=== PATIENT | male | born 1970 | race Caucasian/White ===

== ENCOUNTER 2019-03-03 06:09 | Day surgery (SDC) | payer BC, OTHER ==
[2019-03-01 13:41] VITALS: BMI 30.4
[2019-03-03] MEDS ORDERED: oxyCODONE HCL 10 MG SUSTAINED ACTING TABLET PO ONE (06:12)
[2019-03-03] MEDS ORDERED: DEXAMETHASONE SOD PHOSPHATE/PF 10 MG/ML SDV ONE (07:16)
[2019-03-03] MEDS ORDERED: MIDAZOLAM HCL 2 MG/2 ML SINGLE DOSE VIAL ONE ×3 (07:17→08:45)
[2019-03-03] MEDS ORDERED: BUPIVACAINE HCL/PF 0.5% (5 MG/ML) 30 ML VIAL IJ ONE (07:17)
[2019-03-03] MEDS ORDERED: methylPREDNISolone ACET (DEPO) 40 MG/1 ML VIAL ONE (07:47)
[2019-03-03] MEDS ORDERED: LIDOCAINE 1%/EPI 1:100000 (20 ML MULTI DOSE VIAL) ONE (07:47)
--- NOTE | 2019-03-03 08:13 | HP ---
History & Physical Update - History History: No Change - Physical Physical: No Change - Assessment Assessment: No Change - Plan Plan: No Change
[2019-03-03] MEDS ORDERED: LIDOCAINE 1%/EPI 1:100000 (50 ML MULTI DOSE VIAL) INF ONE (09:11)
[2019-03-03] MEDS ORDERED: oxyCODONE HCL 5 MG TABLET PO PRN (09:18)
[2019-03-03] MEDS ORDERED: ONDANSETRON 4 MG/2 ML VIAL IVPUSH PRN ×2 (09:18→10:57)
[2019-03-03] MEDS ORDERED: LACTATED RINGERS SOLUTION 1,000 ML IV SCH (09:30)
[2019-03-03] MEDS ORDERED: DEXAMETHASONE SOD PHOSPHATE 4 MG/1 ML VIAL ONE (10:00)
[2019-03-03] MEDS ORDERED: ceFAZolin SODIUM 1 GM VIAL ONE (10:00)
[2019-03-03] MEDS ORDERED: SODIUM CHLORIDE 0.9% P/F 10 ML VIAL IJ ONE (10:00)
[2019-03-03] MEDS ORDERED: ONDANSETRON 4 MG/2 ML VIAL ONE (10:00)
[2019-03-03] MEDS ORDERED: methylPREDNISolone ACET (DEPO) 40 MG/1 ML VIAL NR ONE (10:01)
--- NOTE | 2019-03-03 10:56 | OP ---
Operative Note - Note: Operative Date: 03/03/19 Pre-Operative Diagnosis: lumbar stenosis, disc herniation Operation: s/p laminectomy of L4-5 with microdiscectomy, repair of durotomy with durseal Surgeon: Sen Perdue Innersole Maker: Jackie Mitchell Anesthesiologist/COLLECTION COORDINATOR: Yolis Main Anesthesia: Spinal Estimated Blood Loss (mls): 20 Fluid Volume Replaced (mls): 800 Operative Report Dictated: Yes
[2019-03-03] MEDS ORDERED: BISACODYL 10 MG SUPP.RECT RC PRN (10:57)
[2019-03-03] MEDS ORDERED: ACETAMINOPHEN/CAFFEINE/BUTALBITAL 1 TAB PO PRN ×2 (11:01→18:00)
--- NOTE | 2019-03-03 11:07 | OP ---
DATE OF OPERATION: 03/03/2019 PREOPERATIVE DIAGNOSIS: L4-5 stenosis. POSTOPERATIVE DIAGNOSIS: L4-5 stenosis. PROCEDURE PERFORMED: Revision laminectomy, L4-5. SURGEON: Sen Perdue MD PUBLIC AFFAIRS OFFICER: SHARON Torres ESTIMATED BLOOD LOSS: 50 mL. INTRAVENOUS FLUIDS: Per Anesthesia. ANESTHESIA: Spinal/TLIP. COMPLICATIONS: Dural tear fixed with DuraSeal. DISPOSITION: Patient brought to the PACU in stable condition. INDICATION FOR SURGERY: Patient is a 49-year-old gentleman who had previously undergone laminectomy. Unfortunately, his pain recurred. X-rays and MRI were completed which noted that he had a recurrent disk herniation at L4-5. He had gone through an exhaustive course of treatment for this, which included medications, physical therapy as well as injections. Unfortunately, his pain continued to persist despite all this. At this point, risks, benefits, and alternatives were discussed, and the patient consented to surgery. DESCRIPTION OF PROCEDURE: Patient was brought to the operating room by the anesthesia staff. After appropriate patient identification was performed and spinal anesthesia was given, TLIP block was also given, patient was positioned prone onto the OR table with all areas of bony prominences well padded at this time. Two needles were placed into his back to rommel off the L4-5 segment. X-ray was taken to confirm this as correct. Center were removed, and 10 mL of lidocaine with epinephrine were injected in his back at this time. His back was prepped and draped in a sterile manner. At this point, a timeout was completed. An incision was made over his previous scar. Dissection was carried down to the fascia. Fascia was split open at this time. Retractor was placed in. A spinal needle was placed onto the L4 lamina. X-ray confirmed this to be the L4-5 level. The needle was removed. The microscope was brought in. The interspinous ligament at L4-5 was removed. Portion of the L4 and L5 spinous processes were removed. Portions of the L4 lamina were removed. Flavum was removed. In moving the thecal sac medially, a dural tear was noted. It was covered with hany. The disk was noted. It was removed at this time. A complete foraminotomy was done. Attention was turned to the dural tear. A fat patch with muscle was placed over the dura and plugged in. Surgicel was placed over that. DuraSeal was placed over that. The fascia was closed with a No. 1 Vicryl suture. Subcutaneous tissues were closed with 2-0 Vicryl suture. Skin was closed with 3-0 Monocryl suture. Dermabond was applied. Steri-Strips were applied. A sterile dressing was applied. Patient was placed supine on the OR bed and brought to the PACU in stable condition. Prateek LAGUERRE/[id number]
--- NOTE | 2019-03-03 11:10 | SURG ---
Surgery Clay Caster Note Clay Caster: Jackie Mitchell PA-C Date of Service: 03/03/19 Diagnosis: lumbar stenosis, disc herniation Procedure: s/p laminectomy of L4-5 with microdiscectomy, repair of durotomy with durseal I was present for the entirety of the operative procedure. For further detail, please refer to operative report. Visit type - Case Type Case Type: Scheduled - Emergency Emergency Visit: No - New patient This patient is new to me today: Yes Date on this admission: 03/03/19
[2019-03-03] MEDS ORDERED: ACETAMINOPHEN INJECTION 100 ML IVPB ONE (11:50)
[2019-03-03] MEDS ORDERED: ACETAMINOPHEN 1000 MG/100 ML VIAL (NON FORMULARY) IVPB ONE (12:00)
[2019-03-03] MEDS: LACTATED RINGERS SOLUTION 1,000 ML IV SCH (12:55)
[2019-03-03] MEDS: oxyCODONE HCL 5 MG TABLET PO PRN ×2 (14:22→21:52)
[2019-03-03] MEDS: DOCUSATE SODIUM 100 MG CAPSULE (FP) PO SCH ×2 (14:23→21:52)
[2019-03-03] MEDS ORDERED: KETOROLAC TROMETHAMINE 15 MG/ML VIAL IVPUSH PRN (16:24)
[2019-03-03] MEDS ORDERED: DEXAMETHASONE SOD PHOSPHATE 4 MG/1 ML VIAL IVPUSH ONE (16:33)
[2019-03-03] MEDS: CEFAZOLIN 1 GM/D5W 1 GRAM/50 ML BAG IVPB SCH (17:00)
[2019-03-04] MEDS: CEFAZOLIN 1 GM/D5W 1 GRAM/50 ML BAG IVPB SCH (01:00)
[2019-03-04] MEDS ORDERED: LEVOTHYROXINE NA 100 MCG TABLET (FP) ONE (05:06)
[2019-03-04] MEDS ORDERED: LEVOTHYROXINE NA 75 MCG TABLET (FP) ONE (05:06)
[2019-03-04] MEDS: DOCUSATE SODIUM 100 MG CAPSULE (FP) PO SCH ×2 (06:36→13:57)
[2019-03-04] MEDS ORDERED: LEVOTHYROXINE PO SCH (07:00)
[2019-03-04] MEDS ORDERED: KETOROLAC TROMETHAMINE 15 MG/ML VIAL IVPUSH PRN (08:05)
[2019-03-04] MEDS ORDERED: KETOROLAC TROMETHAMINE 30 MG/1 ML VIAL IVPUSH PRN (08:06)
--- NOTE | 2019-03-04 08:14 | PN ---
Progress Note (short form) - Note Progress Note: POD#1 Pt states that he isn't having any headaches, slept overnight. As per nursing staff he was ast medicated for pain around 10pm. Voiding without difficulty. This am after rolling to check the dressing his pain became intense. Vital Signs Period Temp Pulse Resp BP Sys/Rolon Pulse Ox Last 24 Hr 98.2 F-98.8 F 78-88 10-20 113-150/64-80 98-100 GEN: Resting comfortable CV: RRR Lungs: CTA b/l ABD: soft, non-distended, non-tender Back: inc c/d/i without drainage or swelling. Steri-strips in place. Wound flat in apprearance Neuro: 5/5 dorsi/plantar flexion/ EHL b/l. A/P: 49 yo male s/p Laminectomy of L4-5 with durotomy and repair D/w Dr. Perdue, pt with pain this am. Stat dose toradol, helped to relieve his pain yesterday. Will add gabapentin Oxycodone as needed for pain Stool softners for constipation May be oob/ Start with HOB elevated for breakfast and once pain improved oob with assistance. Will monitor patient for pain improvment/headache symptoms.
[2019-03-04] MEDS: ACETAMINOPHEN 325 MG TABLET (FP) PO PRN ×2 (08:44→16:18)
[2019-03-04] MEDS: oxyCODONE HCL 5 MG TABLET PO PRN ×2 (08:45→16:19)
[2019-03-04] MEDS: GABAPENTIN 100 MG CAPSULE (FP) PO SCH ×2 (09:39→13:57)
[2019-03-04] MEDS ORDERED: PATIENT'S OWN MEDICATION (NON-FORMULARY) (Levothyroxine Sodium [Synthroid] 137 MCG) PO SCH (10:00)
[2019-03-04] MEDS ORDERED: DULoxetine HCL 20 MG CAPSULE.DR PO SCH (10:00)
[2019-03-04] MEDS: LACTATED RINGERS SOLUTION 1,000 ML IV SCH (11:00)
[2019-03-04 14:39] VITALS: BP 128/74; PULSE 89; TEMP 98.5
--- NOTE | 2019-03-04 14:44 | PN ---
Progress Note (short form) - Note Progress Note: S: Pt. sitting comfortably, denies pain. Waiting to ambulate with PT. O: VAS 0/10 at rest A/P: POD#1 s/p L4-5 lumbar laminectomy 1. Continue pain meds as ordered
--- NOTE | 2019-03-10 14:53 | PATH ---
Surgical Pathology Report Patient Name: DEO FRASER Med. Rec. #: [id number] /Age/Gender: 1970 (Age: 49) / M Account: [id number] [facility] Taken: 03/03/2019 Received: 03/03/2019 Reported: 03/10/2019 Physicians: Sen Perdue M.D. Specimen(s) Received DISC L4-L5 Clinical History Spinal stenosis Final Diagnosis DISC L4-5, LAMINECTOMY: CARTILAGE WITH DEGENERATIVE CHANGES. Electronically Signed Aline Sanches M.D. Gross Description Received in formalin labeled "disc L4-L5," is a 2.0 x 1.1 x 0.3 cm aggregate of medina fragments of fibrocartilaginous tissue. The specimen is entirely submitted in one cassette. 03/07/201903/07/2019
== END 2019-03-04 16:32 | disposition home or self-care (01) ==
LOC: FASU 06:09 → FASUSAT 06:09 → FM/S 11:33 → FASUSAT 03-04 16:32
PROVIDERS: ATTEND Orthopaedic Surgery Orthopaedic Surgery of the Spine
PROC: 01NB0ZZ Release Lumbar Nerve, Open Approach (ICD-10-PCS; principal; 2019-03-03 09:11)
DX: M48.061 Spinal stenosis, lumbar region without neurogenic claudication (principal)
CPT/HCPCS: 72100-TC-FY; 94760; 97116-GP; J0131